=== PATIENT | female | born 1975 | race African-American/Black ===

== ENCOUNTER → 2021-03-04 01:57 | Outpatient (CLI) | payer OTHER, SELFPAY ==
[2021-03-04 20:20] LABS: SARS-CoV-2 RNA PCR Negative
== END ==
PROVIDERS: PCP Physician Assistant; Visit Provider Internal Medicine Critical Care Medicine
DX: R68.89 Other general symptoms and signs (principal); Z20.822 Contact with and (suspected) exposure to COVID-19
CPT/HCPCS: C9803; U0003; U0005

== ENCOUNTER 2021-05-21 09:30 | Outpatient (CLI) | payer OTHER, SELFPAY ==
[2021-05-21 17:33] LABS: Creatinine Urine 169.5 mg/dL
[2021-05-21 17:37] LABS: MALB Creatinine Ratio 99.9 mg/g (0-30); Microalbumin Urine Random 169.4 mg/L (0-16.7)
[2021-05-21 17:41] LABS: Alanine Aminotransferase 14 U/L (4-35); Albumin Level 3.7 g/dL (3.5-5.1); Alkaline Phosphatase 106 U/L (38-126); Anion Gap 11 mmol/L (8-16); Aspartate Amino Transferase 18 U/L (14-36); Bilirubin,Total 0.5 mg/dL (0.2-1.3); Blood Urea Nitrogen 6 mg/dL (7-17); Calcium 9.3 mg/dL (8.4-10.2); Carbon Dioxide 25 mmol/L (22-30); Chloride 103 mmol/L (98-107); Cholesterol 258 mg/dL (0-200); Estimated Glomerular Filt Rate > 60; Glucose 159 mg/dL (65-110); HDL Direct 53 mg/dL; Potassium 4.4 mmol/L (3.4-5.0); Sodium 139 mmol/L (137-145); Triglycerides 114 mg/dL (<150)
[2021-05-21 17:53] LABS: LDL Cholesterol Direct 156 mg/dL
== END 2021-05-21 09:31 | disposition home or self-care (01) ==
LOC: ANHWCLAB 09:33
PROVIDERS: PCP Physician Assistant; Visit Provider Internal Medicine Endocrinology, Diabetes & Metabolism
DX: E11.65 Type 2 diabetes mellitus with hyperglycemia (principal); Z79.4 Long term (current) use of insulin
CPT/HCPCS: 36415; 80053; 80061; 82043; 84443

== ENCOUNTER 2023-03-24 10:52 | Outpatient (CLI) | payer OTHER, SELFPAY ==
[2023-03-24 17:37] LABS: Vitamin D 25 Hydroxy 13.9 ng/mL
== END 2023-03-24 10:53 | disposition home or self-care (01) ==
LOC: ANHWCLAB 10:53
PROVIDERS: PCP Physician Assistant; Visit Provider Nurse Practitioner Family
DX: E11.29 Type 2 diabetes mellitus with other diabetic kidney complication (principal); R80.9 Proteinuria, unspecified; I10 Essential (primary) hypertension; E55.9 Vitamin D deficiency, unspecified; E78.00 Pure hypercholesterolemia, unspecified; Z68.45 Body mass index [BMI] 70 or greater, adult
CPT/HCPCS: 36415; 82306; 82607